=== PATIENT | female | born 1950 | race Caucasian/White ===

== ENCOUNTER 2017-09-10 05:25 | Day surgery (SDC) | payer OTHER ==
[~2017-09-10] VITALS: Ht 157.5 cm; Wt 68.0 kg
--- NOTE | ~2017-09-10 | O ---
[facility] [place] [address] OPERATIVE REPORT Name: CANDE GARCIA Room #: 150-9 [facility] M.R.#: [id number] Admission: 09/10/17 Attend Phys: Tomas Johnson MD Discharge: Date of : 46 Report #: [id number] THIS REPORT FOR: //name// CC: Sharda Johnson DATE OF SERVICE: 09/10/2017 PREOPERATIVE DIAGNOSIS: Right foot midfoot fracture dislocation. POSTOPERATIVE DIAGNOSIS: Right foot midfoot fracture dislocation. PROCEDURE: Right foot percutaneous screw fixation of Lisfranc fragment joint. SURGEON: Tomas Johnson MD ANESTHESIA: General. ESTIMATED BLOOD LOSS: Minimal. DRAINS: No drains. TOURNIQUET TIME: 20 minutes. DESCRIPTION OF PROCEDURE: The patient was brought to the operating room where she was placed under general anesthesia. Once under adequate general anesthesia, her right lower extremity was prepped and draped in sterile manner. The extremity was elevated, exsanguinated, tourniquet placed to 300 mmHg. Utilizing fluoroscopy for guidance, a bone reduction tenaculum was placed from the base of the second metatarsal to the medial cuneiform. Subsequent reduction of the Lisfranc joint was achieved in this manner. Subsequent fixation across the Lisfranc joint was then achieved with a single 4.0 cannulated screw placed under fluoroscopic guidance. Excellent fixation and alignment was achieved in this manner as verified under fluoroscopy. The wound was irrigated copiously and closed with juan for the skin. The wounds were dressed with Xeroform, 4 x 4s, and a sterile soft compressive dressing was placed. Tourniquet was let down approximately 20 minutes. There were no complications from the procedure. The patient tolerated the procedure well. Toes were pink and warm with good capillary refill. There were no complications from the procedure. The patient tolerated the procedure well and went to the recovery room without incident. By: [id number] Tomas Johnson MD /nt
--- NOTE | ~2017-09-10 | EKG ---
[address] [address] ELECTROCARDIOGRAM REPORT Name: CANDE GARCIA Room #: 150-9 [facility]..#: [id number] Admission: 09/10/17 Attend Phys: Tomas Johnson MD Discharge: Date of : 46 Report #: [id number] THIS REPORT FOR: //name// [facility] Test Date: 2017-09-10 Test Time: 09:20:46 Pat Name: CANDE GARCIA Department: Room: 150 9 Gender: F [employer] Worker: NORA : 1950 Requested By: Tomas Johnson Order Number: [id number] MD: Cuong Ham Measurements Intervals [place] Rate: 64 P: 51 DE: 144 QRS: 25 QRSD: 83 T: 21 QT: 388 QTc: 401 Interpretive Statements Sinus rhythm No previous ECG available for comparison Electronically Signed On 09-10-2017 17:00:55 PACK OPERATOR by Cuong Ham [email or web address] <ELECTRONICALLY SIGNED> By: Cuong Ham MD 09/10/17 1700 0920 09 Cuong Ham MD /DANIEL
[~2017-09-10 05:25] MED LIST: ASPIR 8181 MG PO; BONIVA150 MG PO; DULOXETINE HCL60 MG PO; DURAGESIC1 EAC1 TRANSDERM; LISINOPRIL5 MG PO; MAGNESIUM OXID500 M1 PO; MULTIVITAMINS1 EAC7 PO; NEURONTIN 300300 M1 PO; SYNTHROID88 MCG PO; TURMERIC COMPL1 EACH PO
[2017-09-10 09:45] VITALS: BP 122/74
[2017-09-10] MEDS ORDERED: PERCOCET 7.5-31 EACH PO (11:21)
[2017-09-10] MEDS ORDERED: ASPIRIN325 PO (11:22)
[2017-09-10 12:22] VITALS: BP 122/74
== END 2017-09-10 15:00 | disposition home or self-care (01) ==
LOC: OR 05:25 → TBA 05:25 → OR 08:56
DX: S93.324A Dislocation of tarsometatarsal joint of right foot, initial encounter (principal); I10 Essential (primary) hypertension; E03.9 Hypothyroidism, unspecified; M79.7 Fibromyalgia; Z90.710 Acquired absence of both cervix and uterus; Z98.890 Other specified postprocedural states; Z79.82 Long term (current) use of aspirin; Z79.891 Long term (current) use of opiate analgesic; Z79.899 Other long term (current) drug therapy; X58.XXXA Exposure to other specified factors, initial encounter; Y93.89 Activity, other specified; Y92.89 Other specified places as the place of occurrence of the external cause; Y99.8 Other external cause status
CPT/HCPCS: 50101; 50386; 51122; 51412; 57091; 62110; 62900; 64043